=== PATIENT | male | born 1965 | race Caucasian/White ===

== ENCOUNTER 2020-05-25 23:34 | Emergency (ER) | payer OTHER, MEDICAID ==
[~2020-05-25] VITALS: Ht 182.9 cm; Wt 77.1 kg
[2020-05-25] MEDS ORDERED: LISINOPRIL (23:50)
[2020-05-25] MEDS ORDERED: VERAPAMIL (23:51)
[2020-05-25] MEDS ORDERED: LEXAPRO (23:51)
[2020-05-26 01:06] VITALS: BP 137/71
== END 2020-05-26 01:09 | disposition home or self-care (01) ==
LOC: M.ERS 23:34
DX: M54.9 Dorsalgia, unspecified (principal); I10 Essential (primary) hypertension; F17.210 Nicotine dependence, cigarettes, uncomplicated

== ENCOUNTER 2020-05-31 01:22 | Emergency (ER) | payer OTHER, MEDICAID ==
[~2020-05-31] VITALS: Ht 182.9 cm; Wt 63.5 kg
[~2020-05-31 01:22] MED LIST: LEXAPRO; LISINOPRIL; VERAPAMIL
[2020-05-31 03:02] VITALS: BP 156/92
== END 2020-05-31 03:02 ==
LOC: M.ERS 01:22
DX: S33.5XXA Sprain of ligaments of lumbar spine, initial encounter (principal); I10 Essential (primary) hypertension; V49.49XA Driver injured in collision with other motor vehicles in traffic accident, initial encounter; Y93.89 Activity, other specified; Y92.89 Other specified places as the place of occurrence of the external cause; Y99.8 Other external cause status

== ENCOUNTER 2020-08-10 13:47 | Emergency (ER) | payer OTHER, MEDICAID ==
[~2020-08-10] VITALS: Ht 180.3 cm; Wt 63.5 kg
[2020-08-10] MEDS ORDERED: LISINOPRIL2.5 MG PO (13:54)
[2020-08-10] MEDS ORDERED: VALTREX1000 MG PO (13:54)
[2020-08-10] MEDS ORDERED: NORVASC 2.5 MG2.5 M1 PO (13:54)
[2020-08-10] MEDS ORDERED: PROTONIX40 M2 PO (13:54)
[2020-08-10] MEDS ORDERED: LEXAPRO 10 MG T10 M2 PO (13:54)
[2020-08-10] MEDS ORDERED: LIPITOR10 MG PO (13:54)
[2020-08-10 14:14] LABS: ABSOLUTE BASOPHILS 0.1 thou/uL (0.0-0.2); ABSOLUTE EOSINOPHILS 0.2 thou/uL (0.0-0.7); ABSOLUTE LYMPHOCYTES 3.6 thou/uL (0.8-5.3); ABSOLUTE MONOCYTES 1.3 thou/uL (0.0-1.2); ABSOLUTE NEUTROPHILS 11.4 thou/uL (1.6-8.1); BASOPHILS 0.5 %; EOSINOPHILS 1.2 %; HEMATOCRIT 42.5 % (42.0-52.0); HEMOGLOBIN 14.3 gm/dL (14.0-18.0); LYMPHOCYTES 21.6 %; MCH 31.8 pg (26.0-34.0); MCHC 33.7 g/dL (28.0-37.0); MCV 94.6 fL (80.0-100.0); MPV 7.8 fl. (7.2-11.1); NUCLEATED RBCS 0 /100WBC; PLATELET COUNT* 329 thou/uL (150-400); POLYS 68.7 %; RBC 4.49 mil/uL (4.50-6.00); RDW-CV 13.4 % (10.5-14.5); WBC 16.7 thou/uL (4.0-11.0)
[2020-08-10 14:28] LABS: POTASSIUM 3.5 mmol/L (3.5-5.1)
[2020-08-10 14:35] LABS: ALBUMIN 4.2 g/dL (3.4-5.0); TOTAL BILIRUBIN 0.6 mg/dL (<0.1-1.0); TOTAL PROTEIN 7.9 g/dL (6.4-8.2)
[2020-08-10 14:57] LABS: URINE BILIRUBIN NEGATIVE (Negative); URINE BLOOD NEGATIVE (Negative); URINE CLARITY CLEAR; URINE COLOR YELLOW; URINE GLUCOSE-RANDOM NEGATIVE (Negative); URINE KETONES NEGATIVE (Negative); URINE LEUKOCYTES-REFLEX NEGATIVE (Negative); URINE NITRITE-REFLEX NEGATIVE (Negative); URINE PROTEIN NEGATIVE (Negative); URINE SPECIFIC GRAVITY <= 1.005 (1.005-1.030); URINE UROBILINOGEN 0.2 E.U./dl (0.2-1.0)
[2020-08-10] MEDS ORDERED: PROTONIX40 MG PO (16:08)
[2020-08-10] MEDS ORDERED: FLAGYL500 M1 PO (16:08)
[2020-08-10] MEDS ORDERED: CIPROFLOXACIN500 M1 PO (16:08)
[2020-08-10 18:15] VITALS: BP 143/66
--- NOTE | 2020-08-11 08:25 | EKG ---
[place] [address] ELECTROCARDIOGRAM REPORT Name: TEORUBÉN Room: [facility]#: [id number] Admission: 08/10/20 Attend Phys: Discharge: 08/10/20 Date of : 69 Date of Service: 08/10/20 1406 Report #: [id number] THIS REPORT FOR: //name// [facility] ED Test Date: 2020-08-10 Test Time: 14:06:51 Pat Name: RUBÉN BRUCE Department: Room: Gender: Transportation Director: : 1965 Requested By: Darryl Landers Order Number: [id number] MD: Uzair eLon Measurements Intervals [place] Rate: 94 P: -4 CT: 163 QRS: 23 QRSD: 105 T: 71 QT: 377 QTc: 472 Interpretive Statements Sinus rhythm No previous ECG available for comparison Electronically Signed On 08-11-2020 8:25:00 CDT by Uzair Leon [email or web address] <ELECTRONICALLY SIGNED> By: Uzair Leon MD, [facility] 08/11/20 0825 D: [id number] Uzair Leon MD, FACC /EPI
== END 2020-08-10 18:15 | disposition home or self-care (01) ==
LOC: M.ERS 13:47
PROVIDERS: Family Medicine
DX: F10.129 Alcohol abuse with intoxication, unspecified (principal); Y90.7 Blood alcohol level of 200-239 mg/100 ml; K52.9 Noninfective gastroenteritis and colitis, unspecified

== ENCOUNTER 2020-08-11 00:32 | Emergency (ER) | payer OTHER, MEDICAID ==
[~2020-08-11] VITALS: Ht 180.3 cm; Wt 73.2 kg
[~2020-08-11 00:32] MED LIST changes: +CIPROFLOXACIN500 M1 PO; +FLAGYL500 M1 PO; +LEXAPRO 10 MG T10 M2 PO; +LIPITOR10 MG PO; +LISINOPRIL2.5 MG PO; +NORVASC 2.5 MG2.5 M1 PO; +PROTONIX40 M2 PO; +PROTONIX40 MG PO; +VALTREX1000 MG PO
[2020-08-11 00:45] VITALS: BP 163/87
== END 2020-08-11 01:08 ==
LOC: M.ERS 00:32
DX: M25.511 Pain in right shoulder (principal); M25.512 Pain in left shoulder; Z02.89 Encounter for other administrative examinations; Z79.899 Other long term (current) drug therapy

== ENCOUNTER 2020-08-12 12:52 | Emergency (ER) | payer OTHER, MEDICAID ==
[~2020-08-12] VITALS: Ht 180.3 cm; Wt 74.8 kg
[2020-08-12 13:18] VITALS: BP 145/90
--- NOTE | 2020-08-12 17:46 | EKG ---
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[facility] : 1965 Requested By: Darryl Landers Order Number: [id number] MD: Uzair Leon Measurements Intervals [place] Rate: 104 P: 4 [place]: 154 QRS: -41 QRSD: 96 T: 68 QT: 358 QTc: 471 Interpretive Statements Sinus tachycardia Left axis deviation Abnormal R-wave progression, late transition Baseline wander in lead(s) V1 Compared to ECG 08/10/2020 14:06:51 Left-axis deviation now present Sinus rhythm no longer present Electronically Signed On 08-12-2020 17:46:10 CDT by Uzair Leon [email or web address] <ELECTRONICALLY SIGNED> By: Uzair Leon MD, FACC 08/12/20 1746 1304 1304 Uzair Leon MD, FAC /EPI
== END 2020-08-12 13:19 | disposition home or self-care (01) ==
LOC: M.ERS 12:52
DX: I10 Essential (primary) hypertension (principal); F17.210 Nicotine dependence, cigarettes, uncomplicated; Z79.899 Other long term (current) drug therapy

== ENCOUNTER 2020-08-27 18:24 | Emergency (ER) | payer OTHER, MEDICAID ==
[~2020-08-27] VITALS: Ht 180.3 cm; Wt 68.5 kg
[2020-08-27] MEDS ORDERED: NEURONTIN300 MG PO (18:29)
[2020-08-27 19:18] VITALS: BP 135/72
== END 2020-08-27 19:19 | disposition left against medical advice (07) ==
LOC: M.ERS 18:24
DX: R03.0 Elevated blood-pressure reading, without diagnosis of hypertension (principal); Z53.21 Procedure and treatment not carried out due to patient leaving prior to being seen by health care provider